=== PATIENT | male | born 1980 | race Caucasian/White ===

== ENCOUNTER 2019-01-21 22:21 | Emergency (ER) | payer MEDICAID ==
[~2019-01-21] VITALS: Ht 177.8 cm; Wt 86.2 kg
[2019-01-21] MEDS ORDERED: STRIBILD TABLE1 EACH PO (22:29)
[2019-01-21 22:30] VITALS: BP 139/87
[2019-01-21] MEDS ORDERED: HYDROcodone/Acetamin 5/325 tab ORAL ONE (23:00)
[2019-01-21] MEDS ORDERED: AUGMENTIN 875-1 EAC1 ORAL (23:05)
[2019-01-21] MEDS ORDERED: PSEUDOEPHEDRINE60 MG PO (23:05)
[2019-01-21] MEDS ORDERED: HYDROCODON-ACE1 EA15 ORAL (23:05)
[2019-01-21] MEDS ORDERED: IBUPROFEN600 MG ORAL (23:05)
--- NOTE | 2019-01-21 23:05 | Emergency Room Report ---
History of Present Illness General Chief Complaint: Earache Source: Patient Present Illness HPI This is a 38-year-old male with no significant past medical history. He presents with chief complaint of severe sinus pain and ear pain. Onset for last 2 days. Low-grade fever. Pain is throbbing in nature. 8 out of 10. Worse with sneezing and coughing. He tried the Neti pot and actually got worse. Worse with movement. [id number] medicine not helping. No other complaint. Allergies: Coded Allergies: No Known Allergies (Unverified , 01/21/19) Patient History Past Medical History: see triage record, old chart reviewed Past Surgical History: none Pertinent Family History: none Social History: Denies: smoking Immunizations: other Reviewed Nursing Documentation: PMH: Agreed; PSxH: Agreed Nursing Documentation-PMH Past Medical History: No Stated History Review of Systems Constitutional: Reports: fever Eye: Denies: eye pain, blurred vision ENT: Reports: ear pain; Denies: nose congestion, throat swelling Respiratory: Denies: cough, shortness of breath Cardiovascular: Denies: chest pain, palpitations Gastrointestinal: Denies: abdominal pain, diarrhea, nausea, vomiting Musculoskeletal: Denies: back pain, joint pain Skin: Denies: rash Neurological: Denies: headache, numbness Endocrine: Denies: increased thirst, increased urine Hematologic/Lymphatic: Denies: easy bruising All Other Systems: negative except mentioned in HPI Physical Exam Vital Signs Date Time Temp Pulse Resp B/P (MAP) Pulse Ox O2 Delivery O2 Flow Rate FiO2 01/21/19 22:25 98.1 101 22 139/87 95 Room Air vitals normal Sp02 EP Interpretation: reviewed, normal General Appearance: well appearing, no apparent distress, alert Head: normocephalic, atraumatic Eyes: bilateral eye PERRL, bilateral eye EOMI ENT: hearing grossly normal, normal pharynx, other - Bilateral TMs with erythema. maxillary sinus tenderness with percussion Neck: full range of motion, supple, no meningismus Respiratory: chest non-tender, lungs clear, normal breath sounds Cardiovascular #1: regular rate, rhythm, no murmur Gastrointestinal: normal bowel sounds, non tender, no mass, no organomegaly, no bruit, non-distended Musculoskeletal: back normal, gait/station normal, normal range of motion Psychiatric: mood/affect normal Skin: warm/dry Medical Decision Making Diagnostic Impression: Primary Impression: Acute otitis media, bilateral Additional Impression: Sinusitis, acute maxillary Qualified Codes: J01.00 - Acute maxillary sinusitis, unspecified ER Course Patient with sinus headache and otitis media. No evidence of meningitis, sepsis , pneumonia to name a few. We'll discharge home. Last Vital Signs Date Time Temp Pulse Resp B/P (MAP) Pulse Ox O2 Delivery O2 Flow Rate FiO2 01/21/19 22:30 98.1 93 22 139/87 95 Room Air Status: improved Disposition: HOME, SELF-CARE Condition: Stable Scripts Pseudoephedrine Hcl* (SUDAFED*) 60 Mg Tablet 60 MG PO Q6H, #20 TAB Prov: Ean Gutiérrez MD 01/21/19 Ibuprofen* (MOTRIN*) 600 Mg Tablet 600 MG ORAL THREE TIMES A DAY, #30 TAB 0 Refills Prov: Ean Gutiérrez MD 01/21/19 Hydrocodone/Acetaminophen 5-325* (HYDROCODONE/ACETAMINOPHEN 5-325*) 1 Each Tablet 1 TAB ORAL Q6H PRN for For Pain, #15 TAB 0 Refills Prov: Ean Gutiérrez MD 01/21/19 Amoxicillin/Potassium Clav 875-125* (AUGMENTIN 875-125 TABLET*) 1 Each Tablet 1 TAB ORAL TWICE A DAY, #14 TAB Prov: Ean Gutiérrez MD 01/21/19 Patient Instructions: Otitis Media, Adult, [id number] Additional Instructions: Increase fluids. Follow-up with your doctor in 7 days. Return if worse. Ean Gutiérrez MD Jan 21, 2019 23:05
[2019-01-21 23:10] VITALS: BP 131/96
== END 2019-01-21 23:10 | disposition home or self-care (01) ==
LOC: EMR 22:30
DX: H66.93 Otitis media, unspecified, bilateral (principal); J01.00 Acute maxillary sinusitis, unspecified
CPT/HCPCS: 99283